=== PATIENT | female | born 1985 | race Two or more races ===

== ENCOUNTER 2020-01-16 04:38 | Day surgery (SDC) | payer OTHER ==
[2020-01-14 13:28] VITALS: BMI 31.8
[~2020-01-16 04:38] MED LIST: BUPIVACAINE HCL/PF 0.5% (5 MG/ML) 30 ML VIAL IJ ONE
--- NOTE | 2020-01-16 14:13 | HP ---
Admitting History and Physical - Primary Care Physician PCP: SheltonRicky - Admission Chief Complaint: tubal ligations History Source: Patient Limitations to Obtaining History: No Limitations - Past Medical History GRIDDLE ATTENDANT: No: Alzheimer's, CVA, Dementia, Migraine, Multiple Sclerosis, Peripheral Neuropathy, Parkinson's, Seizure, Syncope, TIA, Vertigo, Other Cardiovascular: No: AFIB, Aneurysm, Aortic Insufficiency, Aortic Stenosis, CAD, CHF, Deep Vein Thrombosis, HTN, Hyperlipdemia, NM, Mitral Insufficiency, Mitral Stenosis, Murmur, Pulmonary Hypertension, Other Pulmonary: No: Asthma, Bronchitis, Cancer, COPD, O2 Dependent, Pneumonia, Previously Intubated, Pulmonary Embolus, Pulmonary Fibrosis, Sleep Apnea, Other Gastrointestinal: No: Ascites, Cancer, Constipation, Crohn's Disease, Diverticulitis, Diverticulosis, Esophageal Varices, Gastritis, GERD, GI Bleed, Hemorrhoids, Hiatal Hernia, Inflamatory Bowel Disease, Irritable Bowel Disease, Pancreatitis, Peptic Ulcer Disease, Ulcerative Colitis, Other Hepatobiliary: No: Cirrhosis, Cholelithiasis, Cholecystitis, Choledocholithiasis, Hepatitis A, Hepatitis B, Hepatitis C, Other Renal/: No: Renal Failure, Renal Inusuff, BPH, Cancer, Hematuria, Hemodialysis, Neurogenic Bladder, Renal Calculi, UTI, Other ...LMP: 12/24/19 ...: No Heme/Onc: No: Anemia, B12 Deficiency, Bleeding Disorder, Cancer, Current Chemotherapy, Current Radiation Therapy, Hemochromatosis, Hypercoaguable State, Myeloproliferative Synd, Sickle Cell Disease, Sickle Cell Trait, Thrombocytopenia, Other Infectious Disease: No: AIDS, C-Diff, Herpes Zoster, HIV, MRSA, STD's, Tuberculosis, VREF, Other Psych: No: Addictions, Anxiety, Bipolar, Depression, Panic, Psychosis, Schizophrenia, Other Musculoskeletal: No: Bursitis, Chronic low back pain, Hemiparesis, Hemiplegia, Osteoarthritis, Paraplegia, Other Rheumatology: No: Fibromyalgia, Gout, Lupus, Rheumatoid Arthritis, Sarcoidosis, Vasculitis, Other ENT: No: Allergic Rhinitis, Sinusitis, Other Endocrine: No: Hamilton's Disease, Óscar's Disease, Diabetes Insipidus, Diabetes Mellitus, Hyperparathyroidism, Hyperthyroidism, Hypothyroidism, Osteopenia, SIADH, Other Dermatology: No: Basal Cell, Cellulitis, Eczema, Melanoma, Psoriasis, Squamous Cell, Other - Past Surgical History Past Surgical History: No: None, AAA Repair, AICD, Amputation, Appendectomy, Arthrosocopy, AV Fistula/Graft, Bariatric Surgery, Breast Biopsy, Bypass, CABG, Carotid Endarterectomy, Cataract Removal, Cholecystectomy, Colectomy, Colonoscopy, Colostomy, Craniotomy, , Cystectomy, Hernia Repair, Hysterectomy, Ileal Conduit, Ileosotomy, Joint Replacement, Kidney Transplant, Laminectomy, Liver Transplant, Mastectomy, Nephrectomy, Oopherectomy, Orchiectomy, Permanent Pacemaker, Prostatectomy, Splenectomy, Stent, Thoracotomy, TURP, Tonsillectomy, Tubal Ligation, Upper Endoscopy, Valve Replacement, Vasectomy, Vein Stripping/Ligation - Advance Directives Advance Directives: Yes: Living Will - Smoking History Smoking history: Never smoked Have you smoked in the past 12 months: No - Alcohol/Substance Use Hx Alcohol Use: No History of Substance Use: reports: None - Social History Usual Living Arrangement: Yes: With Significant Other Do you think of yourself as: Straight/Heterosexual ADL: Independent History of Recent Travel: No Home Medications - Allergies Allergies/Adverse Reactions: Allergies Allergy/AdvReac Type Severity Reaction Status Date / Time No Known Allergies Allergy Verified 01/14/20 13:21 - Home Medications Home Medications: Ambulatory Orders Escitalopram Oxalate [Lexapro -] 20 mg PO DAILY 01/14/20 traZODone HCL [Trazodone HCl] 50 mg PO HS 01/14/20 Family Medical History Family History: Denies Review of Systems - Review of Systems Constitutional: reports: No Symptoms Eyes: reports: No Symptoms HENT: reports: No Symptoms Neck: reports: No Symptoms Cardiovascular: reports: No Symptoms Respiratory: reports: No Symptoms Gastrointestinal: reports: No Symptoms Genitourinary: reports: No Symptoms Breasts: reports: No Symptoms Reported Musculoskeletal: reports: No Symptoms Integumentary: reports: No Symptoms Neurological: reports: No Symptoms Endocrine: reports: No Symptoms Hematology/Lymphatic: reports: No Symptoms Psychiatric: reports: No Symptoms Physical Examination Vital Signs: Vital Signs Temperature 97.9 F 01/16/20 11:45 Pulse Rate 61 01/16/20 11:45 Respiratory Rate 18 01/16/20 11:45 Blood Pressure 103/68 01/16/20 11:45 O2 Sat by Pulse Oximetry (%) 100 10/02/20 11:46 Constitutional: Yes: Well Nourished, No Distress, Calm Eyes: Yes: WNL, Conjunctiva Clear, EOM Intact HENT: Yes: WNL, Atraumatic, Normocephalic Neck: Yes: WNL, Supple, Trachea Midline Cardiovascular: Yes: WNL, Regular Rate and Rhythm Respiratory: Yes: WNL, Regular, CTA Bilaterally Gastrointestinal: Yes: WNL, Normal Bowel Sounds, Soft ...Rectal Exam: Yes: WNL Renal/: Yes: WNL Breast(s): Yes: WNL Musculoskeletal: Yes: WNL Extremities: Yes: WNL Edema: No Integumentary: Yes: WNL, Venous Stasis Changes Wound/Incision: Yes: Clean/Dry Neurological: Yes: WNL, Alert, Oriented ...Motor Strength: WNL Psychiatric: Yes: WNL, Alert, Oriented Assessment/Plan for btl , no regretts per pt, declinbe all other methods
[2020-01-16] MEDS ORDERED: PROPOFOL 20 ML ONE (14:23)
[2020-01-16] MEDS ORDERED: SUCCINYLCHOLINE CHLORIDE 200 MG/10 ML SYRINGE ONE (14:23)
[2020-01-16] MEDS ORDERED: LIDOCAINE HCL/PF 2% SDV 5ML VIAL ONE (14:23)
[2020-01-16] MEDS ORDERED: fentaNYL CITRATE 250 MCG/5 ML VIAL ONE (14:23)
[2020-01-16] MEDS ORDERED: MIDAZOLAM HCL 2 MG/2 ML SINGLE DOSE VIAL ONE (14:25)
[2020-01-16] MEDS ORDERED: ceFAZolin SODIUM 1 GM VIAL IVPB ONE (14:30)
[2020-01-16] MEDS ORDERED: BUPIVACAINE HCL/PF 0.5% (5 MG/ML) 30 ML VIAL IJ ONE (15:15)
[2020-01-16] MEDS ORDERED: ONDANSETRON 4 MG/2 ML VIAL IVPUSH PRN (15:38)
[2020-01-16] MEDS ORDERED: oxyCODONE HCL 5 MG TABLET PO PRN (15:38)
[2020-01-16] MEDS ORDERED: PROMETHAZINE HCL 25 MG/1 ML VIAL IVPUSH PRN (15:38)
[2020-01-16] MEDS ORDERED: IBUPROFEN 800 MG/8 ML IJ IVPB PRN (16:11)
[2020-01-16] MEDS ORDERED: IBUPROFEN 400 MG TABLET (FP) PO PRN (16:11)
[2020-01-16] MEDS ORDERED: IBUPROFEN 600 MG TABLET (FP) PO PRN (16:11)
[2020-01-16] MEDS ORDERED: LACTATED RINGERS SOLUTION 1,000 ML IV SCH (16:15)
--- NOTE | 2020-01-16 17:22 | OP ---
Operative Note - Note: Operative Date: 01/16/20 Pre-Operative Diagnosis: voluntary sterilization Operation: laparoscopic btl Findings: no adhesion s Post-Operative Diagnosis: Same as Pre-op Surgeon: Ricky Peoples Anesthesiologist/[employer]: Torsten Mcnair Anesthesia: General Estimated Blood Loss (mls): 5 (no compliactions ) Operative Report Dictated: Yes
[2020-01-16 18:12] VITALS: BP 122/80; PULSE 66; TEMP 97.4
--- NOTE | 2020-01-18 08:37 | OP ---
DATE OF OPERATION: DATE OF DICTATION: 01/16/2020 PREOPERATIVE DIAGNOSIS: Voluntary sterilization. POSTOPERATIVE DIAGNOSIS: Voluntary sterilization. PROCEDURE: Laparoscopic bilateral tubal ligation. SURGEON: Ricky Sarabia MD ANESTHESIOLOGIST: Torsten Mcnair MD INDICATION: A 34-year-old female patient has 4 children. All the risks and benefits and alternatives explained to the patient including future , ectopic, nonreversible. Patient understood. Patient insisted on the tubal ligation, declined any other family planning methods. DESCRIPTION OF PROCEDURE: So, patient was taken to the OR, placed on the operating table in the supine position. After general anesthesia patient was placed in the lithotomy position and Veress needle was inserted into the umbilicus. Patient had an abdominoplasty before with a fake umbilicus, so I poked twice with the Veress needle in order to get into abdominal cavity. Then the CO2 gas was inflated to 15 mm pressure. Then a 5-mm trocar was inserted into the umbilicus area. No complication. Then we inserted another 5-mm trocar at the right lower quadrant area. Camera was inserted. Bowel was inspected. No bleeding. No lesion was seen. Then both isthmic and the fallopian tubes were grasped with the LigaSure and both coagulated and transected, and good hemostasis. We inspected the bowel with the camera. No bleeding and both trocars were removed. The fascia was closed and the skin was closed. There was some oozing from the umbilicus area. By putting pressure good hemostasis was obtained. No bleeding. So, patient was transferred to recovery room in stable condition. RICKY SARABIA MD [id number]
== END 2020-01-16 18:15 | disposition home or self-care (01) ==
LOC: JASU-SURG 04:38
PROVIDERS: ATTEND Obstetrics & Gynecology
PROC: 0U574ZZ Destruction of Bilateral Fallopian Tubes, Percutaneous Endoscopic Approach (ICD-10-PCS; principal; 2020-01-16 13:00)
DX: Z30.2 Encounter for sterilization (principal)
CPT/HCPCS: 94760